=== PATIENT | female | born 1990 | race Caucasian/White ===

== ENCOUNTER 2016-10-05 04:20 | Emergency (ER) | payer BC ==
[~2016-10-05] VITALS: Ht 170.2 cm; Wt 105.0 kg
[2016-10-05 04:23] VITALS: Ht 170.2 cm; Wt 105.0 kg
[2016-10-05] MEDS ORDERED: HYDROCODONE/APAP (5/325) TAB PO ONE (06:30)
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
--- NOTE | 2016-10-05 07:18 | RADRPT ---
PROCEDURE: Left foot series CLINICAL INDICATION: Trauma TECHNIQUE: AP lateral and oblique images of the left foot were obtained. COMPARISON: None FINDINGS: There is no evidence of acute fractures or dislocations. There are no focal bony blastic or lytic l esions. No evidence of erosions. Soft tissues are unremarkable. IMPRESSION: No evidence of acute fractures dislocations or erosions. RPTAT:AAJJ Physician Micki Date Time Electronically viewed and signed by Elizabeth De Anda Physician on 10/05/2016 07:18 /
--- NOTE | 2016-10-05 07:19 | RADRPT ---
PROCEDURE: Left ankle series CLINICAL INDICATION: Trauma TECHNIQUE: AP lateral oblique images were obtained COMPARISON: Left foot same day FINDINGS: There is soft tissue swelling along the anterior left ankle and distal left leg. No evidence of acu te fractures or dislocations. The bony mineralization is normal. No focal bony blastic or lytic le sions. IMPRESSION: Soft tissue swelling involving the anterior left ankle and distal left leg without underlying acute fractures or dislocations. RPTAT:AAJJ Physician Micki Date Time Electronically viewed and signed by Elizabeth De Anda Physician on 10/05/2016 07:19 /
[2016-10-05] MEDS ORDERED: TRAM50TA2 PO (07:30)
[2016-10-05] MEDS ORDERED: NAPR-260 PO (07:30)
[2016-10-05 08:16] VITALS: BP 122/64; PULSE 76; RESP 20; TEMP 98.3
== END 2016-10-05 08:10 | disposition home or self-care (01) ==
LOC: FTE 04:20
DX: S99.912A Unspecified injury of left ankle, initial encounter (principal); W10.9XXA Fall (on) (from) unspecified stairs and steps, initial encounter; Y92.9 Unspecified place or not applicable
CPT/HCPCS: 73610